=== PATIENT | male | born 1990 | race African-American/Black ===

== ENCOUNTER 2022-11-08 15:09 | Emergency (ER) | payer OTHER ==
[~2022-11-08] VITALS: Ht 188 cm; Wt 90.9 kg
[2022-11-08] MEDS ORDERED: OXYCODONE W/ ACETAMINOPHEN 5/325MG TABLET PO ONE (15:30)
[2022-11-08] MEDS ORDERED: ONDANSETRON HCL 4 MG/2 ML VIAL IV ONE (16:15)
[2022-11-08] MEDS ORDERED: HYDROmorphone HCL 2 MG/ML VL/or syr IV ONE ×2 (16:15→20:00)
[2022-11-08 20:50] VITALS: BP 150/78
== END 2022-11-08 23:57 | disposition home or self-care (01) ==
LOC: ER 15:12
DX: S52.511A Displaced fracture of right radial styloid process, initial encounter for closed fracture (principal); V28.49XA Other motorcycle driver injured in noncollision transport accident in traffic accident, initial encounter; Y93.89 Activity, other specified; Y92.89 Other specified places as the place of occurrence of the external cause; Y99.8 Other external cause status
CPT/HCPCS: 73090; 96374; 96375; 96376; 99285; J1170; J2405